=== PATIENT | male | born 1980 | race Caucasian/White ===

== ENCOUNTER 2020-10-04 14:51 | Day surgery (SDCO) | payer OTHER ==
[~2020-10-04] VITALS: Ht 162.6 cm; Wt 83.0 kg
[2020-10-04 16:56] LABS: BASOPHIL 0.5 % (0-2); EOSINOPHIL 3.2 % (0-5); HCT 41.8 % (42.0-52.0); HGB 14.1 g/dl (13.2-18.0); LYMPHOCYTE 40.4 % (15-48); MCH 29.3 pg (25.0-31.0); MCHC 33.7 g/dL (32.0-36.0); MCV 86.9 fL (78.0-100.0); MONOCYTE 13.9 % (0-12); MPV 10.9 fL (6.0-9.5); NEUTROPHIL 41.7 % (41-80); NRBC 0; PLT 170 K/uL (150-400); RBC 4.81 M/uL (4.70-6.00); RDW 12.6 % (11.5-14.0); WBC 3.7 K/uL (4.0-10.5)
[2020-10-04 16:57] LABS: BILIRUBIN NEGATIVE (NEGATIVE); BLOOD NEGATIVE Ery/uL (NEGATIVE); CLARITY CLEAR (CLEAR); COLOR YELLOW (YELLOW); GLUCOSE (U) NORMAL (NORMAL); LEUKOCYTES NEGATIVE Leu/uL (NEGATIVE); NITRITE NEGATIVE (NEGATIVE); PROTEIN NEGATIVE (NEGATIVE); UROBILINOGEN 0.2 mg/dL (0.2-1.0)
[2020-10-04 17:44] LABS: ALBUMIN 3.5 g/dL (3.4-5.0); BILIRUBIN - TOTAL 0.4 mg/dL (0.2-1.0); BUN/CREAT RATIO (CALC) 10.7 RATIO; CREATININE 0.84 mg/dL (0.67-1.17); GLOBULIN (CALCULATION) 3.5 g/dL; POTASSIUM 4.2 mmol/L (3.5-5.1)
[2020-10-04] MEDS ORDERED: FAMOTIDINE20 MG PO (21:49)
[2020-10-04] MEDS ORDERED: CLARITIN10 MG PO (21:51)
[2020-10-04] MEDS ORDERED: CITALOPRAM HBR20 MG PO (21:51)
[2020-10-04] MEDS ORDERED: LEVOTHYROXINE50 MCG PO (21:52)
[2020-10-04] MEDS ORDERED: MONTELUKAST SOD10 MG PO (21:52)
[2020-10-04] MEDS ORDERED: DIVALPROEX SOD125 M1 PO (21:53)
[2020-10-04] MEDS ORDERED: BREO ELLIPTA 11 EACH INH (21:54)
[2020-10-04] MEDS ORDERED: VENTOLIN HFA IN18 GM INH (21:55)
[2020-10-05 05:44] LABS: BASOPHIL 0.7 % (0-2); EOSINOPHIL 4.1 % (0-5); HCT 40.5 % (42.0-52.0); HGB 13.3 g/dl (13.2-18.0); LYMPHOCYTE 51.1 % (15-48); MCH 29.1 pg (25.0-31.0); MCHC 32.8 g/dL (32.0-36.0); MCV 88.6 fL (78.0-100.0); MONOCYTE 13.6 % (0-12); MPV 10.8 fL (6.0-9.5); NRBC 0; PLT 163 K/uL (150-400); RBC 4.57 M/uL (4.70-6.00); RDW 12.6 % (11.5-14.0); WBC 4.2 K/uL (4.0-10.5)
[2020-10-05 06:33] LABS: ALBUMIN 3.1 g/dL (3.4-5.0); BILIRUBIN - TOTAL 0.4 mg/dL (0.2-1.0); BUN/CREAT RATIO (CALC) 8.2 RATIO; CREATININE 0.97 mg/dL (0.67-1.17); GLOBULIN (CALCULATION) 3.3 g/dL; POTASSIUM 4.4 mmol/L (3.5-5.1); TOTAL PROTEIN 6.4 g/dL (6.4-8.2)
--- NOTE | 2020-10-05 10:56 | NUR ---
PENICILLIN ALLERGY TESTING 1ML OF TRIMOX/ AMOXXICILLIN GIVEN AT 1011 PT HAD NO COMPLAINTS, NO DISTRESS IS NOTED, ABDOMEN AND BACK WERE ASSESSED FOR RASH. NO RASH IS NOTED. PT RESTING PEACEFULLY, NO CHANGES IN BREATHING PATTERN 4ML OF TRIMOX/AMOXICILLIN GIVEN AT 1041 PT HAD NO COMPLAINTS, NO DISTRESS IS NOTED, ABDOMEN AND BACK WERE ASSESSED FOR RASH, PT IS SLEEPING PEACFULLY. NO CHANGES IN BREATHING PATTEN
[2020-10-06 05:10] LABS: IMMUNOGLOBULIN A, QN, SERUM 245 mg/dL (90-386); IMMUNOGLOBULIN G, QN, SERUM 831 mg/dL (603-1613); IMMUNOGLOBULIN M, QN, SERUM 82 mg/dL (20-172)
[2020-10-06 06:02] LABS: BASOPHIL 0.5 % (0-2); EOSINOPHIL 3.2 % (0-5); HCT 39.4 % (42.0-52.0); LYMPHOCYTE 41.8 % (15-48); MCH 29.3 pg (25.0-31.0); MCV 88.7 fL (78.0-100.0); MONOCYTE 10.4 % (0-12); MPV 10.7 fL (6.0-9.5); NEUTROPHIL 43.6 % (41-80); NRBC 0; PLT 156 K/uL (150-400); RBC 4.44 M/uL (4.70-6.00); RDW 12.5 % (11.5-14.0); WBC 4.3 K/uL (4.0-10.5)
[2020-10-06 06:31] LABS: BUN/CREAT RATIO (CALC) 9.6 RATIO; CREATININE 0.83 mg/dL (0.67-1.17); POTASSIUM 4.1 mmol/L (3.5-5.1)
[2020-10-06] MEDS ORDERED: LEVAQUIN500 MG PO (10:08)
== END 2020-10-06 12:45 | disposition home or self-care (01) ==
LOC: FER 14:51 → FMS 20:56
PROVIDERS: Allergy & Immunology Allergy; Nurse Practitioner; ADMIT Internal Medicine
DX: R10.32 Left lower quadrant pain (principal); J45.909 Unspecified asthma, uncomplicated; G40.909 Epilepsy, unspecified, not intractable, without status epilepticus; Z88.0 Allergy status to penicillin; Z88.2 Allergy status to sulfonamides; E03.9 Hypothyroidism, unspecified; Z20.822 Contact with and (suspected) exposure to COVID-19
CPT/HCPCS: 36415; 72192; 80048; 80053; 81003; 82150; 82784; 83605; 83690; 85025; 86140; 86355; 86359; 86360; 94010; 94640; G0378; J0696; J1200; J2270; J2405; J3490; J7030; Q9967; U0002

== ENCOUNTER 2022-01-08 19:12 | Emergency (ER) | payer OTHER ==
[~2022-01-08 19:12] MED LIST: BREO ELLIPTA 11 EACH INH; CITALOPRAM HBR20 MG PO; CLARITIN10 MG PO; DIVALPROEX SOD125 M1 PO; FAMOTIDINE20 MG PO; LEVAQUIN500 MG PO; LEVOTHYROXINE50 MCG PO; LOPRESSOR25 MG PO; MONTELUKAST SOD10 MG PO; VENTOLIN HFA IN18 GM INH
[2022-01-09 00:28] LABS: BASOPHIL 0.7 % (0-2); EOSINOPHIL 2.3 % (0-5); HCT 41.9 % (42.0-52.0); HGB 13.8 g/dl (13.2-18.0); LYMPHOCYTE 28.2 % (15-48); MCH 29.4 pg (25.0-31.0); MCHC 32.9 g/dL (32.0-36.0); MCV 89.1 fL (78.0-100.0); MONOCYTE 14.8 % (0-12); MPV 10.4 fL (6.0-9.5); NEUTROPHIL 53.3 % (41-80); NRBC 0; PLT 171 K/uL (150-400); RDW 12.2 % (11.5-14.0); WBC 8.2 K/uL (4.0-10.5)
[2022-01-09 01:18] LABS: ALBUMIN 3.4 g/dL (3.4-5.0); BILIRUBIN - TOTAL 0.6 mg/dL (0.2-1.0); BUN/CREAT RATIO (CALC) 13.5 RATIO; CREATININE 0.89 mg/dL (0.67-1.17); GLOBULIN (CALCULATION) 3.5 g/dL; TOTAL PROTEIN 6.9 g/dL (6.4-8.2)
== END 2022-01-09 06:01 | disposition home or self-care (01) ==
LOC: FER 19:12
PROVIDERS: Emergency Medicine
DX: I97.89 Other postprocedural complications and disorders of the circulatory system, not elsewhere classified (principal); J45.909 Unspecified asthma, uncomplicated; Z88.0 Allergy status to penicillin; Z88.2 Allergy status to sulfonamides; Y83.8 Other surgical procedures as the cause of abnormal reaction of the patient, or of later complication, without mention of misadventure at the time of the procedure
CPT/HCPCS: 36415; 75635; 80053; 85025; J7030; Q9967

== ENCOUNTER 2022-01-12 11:42 | Emergency (ER) | payer OTHER ==
[2022-01-12 16:23] LABS: BASOPHIL 0.8 % (0-2); HCT 41.2 % (42.0-52.0); HGB 13.5 g/dl (13.2-18.0); LYMPHOCYTE 30.5 % (15-48); MCH 29.3 pg (25.0-31.0); MCHC 32.8 g/dL (32.0-36.0); MCV 89.4 fL (78.0-100.0); MONOCYTE 10.3 % (0-12); MPV 10.6 fL (6.0-9.5); NEUTROPHIL 54.7 % (41-80); NRBC 0; PLT 211 K/uL (150-400); RBC 4.61 M/uL (4.70-6.00); RDW 12.1 % (11.5-14.0)
[2022-01-12 16:34] LABS: INR 1.08 (0.9-1.2); PROTHROMBIN TIME 13.7 SECONDS (11.9-13.9); PTT 28.2 SECONDS (24.9-34.6)
[2022-01-12 16:45] LABS: ALBUMIN 3.3 g/dL (3.4-5.0); ALKALINE PHOSHATASE 80 U/L (46-116); ALT 24 U/L (16-63); AST 15 U/L (15-37); BILIRUBIN - TOTAL 0.3 mg/dL (0.2-1.0); BUN 12 mg/dL (7-18); BUN/CREAT RATIO (CALC) 14.5 RATIO; CHLORIDE 100 mmol/L (98-107); CO2 (BICARBONATE) 29 mmol/L (21-32); CREATININE 0.83 mg/dL (0.67-1.17); GLOBULIN (CALCULATION) 3.7 g/dL; GLUCOSE 82 mg/dL (74-106); POTASSIUM 4.3 mmol/L (3.5-5.1)
[2022-01-12 17:17] LABS: CORONAVIRUS 2019 SARS-COV-2 NEGATIVE (NEGATIVE); INFLUENZA A NAA NEGATIVE (NEGATIVE)
== END 2022-01-12 19:48 | disposition other institution (70) ==
LOC: FER 11:42
PROVIDERS: Emergency Medicine
DX: I82.4Y2 Acute embolism and thrombosis of unspecified deep veins of left proximal lower extremity (principal); I82.412 Acute embolism and thrombosis of left femoral vein; I82.812 Embolism and thrombosis of superficial veins of left lower extremity; J45.909 Unspecified asthma, uncomplicated; Z20.822 Contact with and (suspected) exposure to COVID-19; Z88.0 Allergy status to penicillin; Z88.2 Allergy status to sulfonamides
CPT/HCPCS: 36415; 71045; 80053; 83880; 84484; 85025; 85610; 85730; J1644; U0002